=== PATIENT | female | born 1990 | race Caucasian/White ===

== ENCOUNTER 2020-02-27 09:26 | Emergency (ER) | payer MEDICAID ==
[~2020-02-27] VITALS: Ht 167.6 cm; Wt 64.0 kg
[2020-02-27] MEDS ORDERED: KETOROLAC 30MG/ML VIAL IV STA (09:51)
[2020-02-27] MEDS ORDERED: ONDANSETRON HCL 4MG/2ML INJ IV STA (09:51)
[2020-02-27] MEDS ORDERED: SODIUM CHLORIDE 0.9% 1,000 ML IV ONE (10:00)
[2020-02-27 10:08] LABS: BASOPHILS % 0.5 % (0.0-2.0); EOSINOPHILS % 0.5 % (0.0-5.0); HEMATOCRIT. 44.8 % (36.0-48.0); HEMOGLOBIN. 15.2 g/dL (12.0-16.0); LYMPHOCYTES % 14.8 % (20.0-50.0); MEAN CORPUSCULAR HEMOGLOBIN 29.2 pg (28.0-32.0); MEAN CORPUSCULAR VOLUME 85.9 fL (81.0-99.0); MONOCYTES % 5.2 % (2.0-8.0); PLATELET 264 x1000/uL (130-400); RED BLOOD CELL COUNT 5.21 mill/uL (4.2-5.4); RED CELL DISTRIBUTION WIDTH 13.7 % (11.6-14.6)
[2020-02-27] MEDS ORDERED: VISCOUS LIDOCAINE 2% 15 ML UDC PO STA (10:12)
[2020-02-27] MEDS ORDERED: DICYCLOMINE 10 MG/5 ML ORAL SYR PO STA (10:12)
[2020-02-27] MEDS ORDERED: MAGNESIUM/ALUMINUM HYDROXIDE/SIMETHICONE 30ML UDC PO STA (10:12)
[2020-02-27 10:13] LABS: CHLORIDE 109 mEq/L (98-107)
[2020-02-27 10:17] LABS: ETHANOL BLOOD < 10 mg/dL
[2020-02-27] MEDS ORDERED: POTASSIUM CHLORIDE INJ 40 MEQ in DEXT 5% WATER 500 ML IV ONE (10:30)
[2020-02-27] MEDS ORDERED: POTASSIUM CHLORIDE 20MEQ TABLET SR PO ONE (10:30)
[2020-02-27 10:36] LABS: HCG SCREEN NEGATIVE
[2020-02-27 11:34] LABS: CLARITY URINE TURBID (CLEAR); COLOR URINE DARK YELLOW (YELLOW); KETONES URINE 1+ (NEGATIVE); LEUKOCYTE ESTERASE URINE 3+ (NEGATIVE); NITRITE URINE POSITIVE (NEGATIVE); OCCULT BLOOD URINE 3+ (NEGATIVE); PH URINE 5.5 (4.5-8.0); PROTEIN URINE 2+ (NEGATIVE); SPECIFIC GRAVITY URINE 1.028 (1.005-1.030)
[2020-02-27 11:53] LABS: METHADONE URINE SCREEN NEGATIVE (NEGATIVE); OPIATES URINE SCREEN NEGATIVE (NEGATIVE)
[2020-02-27 11:54] LABS: *AMPHETAMINES SCREEN URINE NEGATIVE (NEGATIVE); *BARBITURATES SCREEN URINE NEGATIVE (NEGATIVE); *BENZODIAZEPINES SCREEN URINE NEGATIVE (NEGATIVE); *COCAINE SCREEN URINE NEGATIVE (NEGATIVE); PHENCYCLIDINE URINE SCREEN NEGATIVE (NEGATIVE)
[2020-02-27 11:55] LABS: CANNABINOID URINE SCREEN PRESUMTIVE POSITIVE (NEGATIVE)
[2020-02-27 13:06] VITALS: BP 112/63
== END 2020-02-27 13:13 | disposition home or self-care (01) ==
LOC: ER 09:26
DX: R10.13 Epigastric pain (principal); N30.00 Acute cystitis without hematuria; E87.6 Hypokalemia; F12.10 Cannabis abuse, uncomplicated
CPT/HCPCS: 36415; 74176; 80053; 80305; 80320; 81003; 83690; 84703; 85025; 87077; 87086; 87186; 93005; 96361; 96365; 96375; 99285; J1885; J2405; J3480; J7030; J7060; G0480